=== PATIENT | female | born 1990 | race American Indian/Alaskan Native ===

== ENCOUNTER 2017-10-10 11:00 | Outpatient (CLI) | payer MEDICARE | END 2017-10-10 11:01 | disposition home or self-care (01) | LOC: SLR 11:00 | PROVIDERS: ATTEND Otolaryngology | DX: G47.33 Obstructive sleep apnea (adult) (pediatric) (principal) | CPT/HCPCS: 95810 ==

== ENCOUNTER 2017-11-02 11:00 | Outpatient (CLI) | payer MEDICARE | END 2017-11-02 11:01 | disposition home or self-care (01) | LOC: SLR 11:00 | PROVIDERS: ATTEND Otolaryngology | DX: G47.33 Obstructive sleep apnea (adult) (pediatric) (principal) | CPT/HCPCS: 95811 ==

== ENCOUNTER 2018-11-14 06:43 | Day surgery (SDC) | payer MEDICARE ==
[2018-11-14] MEDS ORDERED: NACL 0.9% 1000 ML 1,000 ML IV SCH (07:00)
--- NOTE | 2018-11-14 08:51 | Anesthesia Consultation ---
Anesthesia Consult and Med Hx Date of service: 11/14/18 - Airway Anesthetic Teeth Evaluation: Good ROM Head & Neck: Adequate Mental/Hyoid Distance: Adequate Mallampati Class: Class II Intubation Access Assessment: Possibly Difficult - Pulmonary Exam CTA: Yes - Cardiac Exam Cardiac Exam: RRR - Pre-Operative Health Status ASA Pre-Surgery Classification: ASA3 Proposed Anesthetic Plan: MAC - Pulmonary Hx Smoking: No Hx Sleep Apnea: Yes (compliant with CPAP) - Cardiovascular System Hx Hypertension: No Hx Heart Attack/AMI: No Hx Cardia Arrhythmia: No - Central Nervous System CVA: No - Gastrointestinal Hx Gastroesophageal Reflux Disease: No - Endocrine Hx Renal Disease: No Hx Liver Disease: No Hx Insulin Dependent Diabetes: No Hx Non-Insulin Dependent Diabetes: No Hx Thyroid Disease: No - Hematic Hx Anemia: Yes - Other Systems Hx Obesity: Yes (BMI 77) - Additional Comments Anesthesia Medical History Comments: No prior GA. No FHx anesthetic complications.
--- NOTE | 2018-11-14 08:52 | Anesthesia Day of Surgery ---
Anesthesia Day of Surgery - Day of Surgery Patient Examined: Yes Patient H&P Reviewed: Yes Patient is NPO: Yes
[2018-11-14] MEDS ORDERED: DIPRIVAN 10 MG/ML IV ONE (10:57)
[2018-11-14] MEDS ORDERED: WATER FOR IRRIG STERILE IR ONE (11:43)
[2018-11-14] MEDS ORDERED: WATER FOR IRRIG STERILE ONE (11:43)
[2018-11-14] MEDS ORDERED: VERSED ONE (11:43)
--- NOTE | 2018-11-14 12:27 | Operative Report ---
SURGEON: Omid Collins M.D. MATERIAL HANDLER 1ST SHIFT: Odell Mathews M.D. PREOPERATIVE DIAGNOSIS: Morbid obesity. POSTOPERATIVE DIAGNOSES: Retained food products. PROCEDURE: Attempted endoscopy. ANESTHESIA: MAC. COMPLICATIONS: Retained food products obscuring view, inability to complete EGD. SPECIMENS: None. BLEEDING: None. INDICATIONS: The patient is a 28-year-old female with a history of morbid obesity. She is here for a preoperative EGD in preparation for weight loss surgery. Informed consent was obtained. DESCRIPTION OF PROCEDURE: The patient was brought to the GI suite where she was placed in the left lateral decubitus position and underwent MAC anesthesia. A bite block was placed and a timeout was called. A standard adult gastroscope was inserted into the oropharynx, down the esophagus, into the proximal portion of the stomach. Upon entry, there was visualization of solid food products obscuring view. I attempted to pass this, but there was too much foreign body material. The food products were too thick for suctioning and therefore the procedure was aborted. The air was suctioned and scope was removed. The patient tolerated the procedure well with no immediate complications and was transferred to the PACU in stable condition. FINDINGS: Significant retained food products, inability to complete EGD. The patient will have to be strict n.p.o. after midnight in preparation for operation as well as adherent to the clear liquid diet for 2 days prior to surgery. We will need to do a preoperative EGD before her operation. JOB# [id number] [facility]
[2018-11-14 12:33] VITALS: BP 132/76
== END 2018-11-14 06:44 | disposition home or self-care (01) ==
LOC: GIO 06:43
PROVIDERS: ATTEND Specialist
DX: K30 Functional dyspepsia (principal); E66.01 Morbid (severe) obesity due to excess calories; G47.30 Sleep apnea, unspecified; K21.9 Gastro-esophageal reflux disease without esophagitis; Z98.890 Other specified postprocedural states; Z98.84 Bariatric surgery status; Z79.899 Other long term (current) drug therapy; Z68.45 Body mass index [BMI] 70 or greater, adult; Z86.2 Personal history of diseases of the blood and blood-forming organs and certain disorders involving the immune mechanism
CPT/HCPCS: 43235; 81025; J2250; J2704; J7030

== ENCOUNTER 2018-11-28 06:17 | Day surgery (SDC) | payer MEDICARE ==
[2018-11-28] MEDS ORDERED: NACL 0.9% 1000 ML 1,000 ML IV SCH (07:00)
[2018-11-28] MEDS ORDERED: WATER FOR IRRIG STERILE IR ONE (07:26)
[2018-11-28] MEDS ORDERED: WATER FOR IRRIG STERILE ONE (07:26)
[2018-11-28] MEDS ORDERED: XYLOCAINE 2% INFILTRATI ONE (07:30)
[2018-11-28] MEDS ORDERED: DIPRIVAN 10 MG/ML IV ONE (07:30)
[2018-11-28] MEDS ORDERED: VERSED ONE (07:34)
[2018-11-28] MEDS ORDERED: ROBINUL ONE ×2 (07:44→14:46)
[2018-11-28] MEDS ORDERED: NACL 0.9% 100 ML ONE (07:45)
[2018-11-28] MEDS ORDERED: NEO SYNEPHRINE ONE (07:45)
[2018-11-28] MEDS ORDERED: KETALAR ONE (07:46)
--- NOTE | 2018-11-28 07:53 | Anesthesia Day of Surgery ---
Anesthesia Day of Surgery - Day of Surgery Patient Examined: Yes Patient H&P Reviewed: Yes Patient is NPO: Yes Beta Blockers: No
--- NOTE | 2018-11-28 07:54 | Anesthesia Consultation ---
Anesthesia Consult and Med Hx Date of service: 11/28/18 - Airway Anesthetic Teeth Evaluation: Good ROM Head & Neck: Adequate Mental/Hyoid Distance: Adequate Mallampati Class: Class II Intubation Access Assessment: Probably Good - Pulmonary Exam CTA: Yes - Cardiac Exam Cardiac Exam: No Murmur - Pre-Operative Health Status ASA Pre-Surgery Classification: ASA2 Proposed Anesthetic Plan: MAC - Pulmonary Hx Smoking: No Hx Pneumonia: Yes (HX) Hx Sleep Apnea: Yes - Cardiovascular System Hx Hypertension: No Hx Heart Attack/AMI: No Hx Cardia Arrhythmia: No - Central Nervous System CVA: No - Gastrointestinal Hx Gastroesophageal Reflux Disease: No - Endocrine Hx Renal Disease: No Hx Liver Disease: No Hx Insulin Dependent Diabetes: No Hx Non-Insulin Dependent Diabetes: No Hx Thyroid Disease: No - Hematic Hx Anemia: Yes - Other Systems Hx Obesity: Yes (BMI 77)
[2018-11-28 08:36] VITALS: BP 139/82
[2018-11-28] MEDS ORDERED: NACL 0.9% 1000 ML 1,000 ML ONE (09:50)
--- NOTE | 2018-11-28 10:41 | Operative Report ---
SURGEON: Omid Collins MD [employer] CLAIM EXAMINER: Odell Mathews MD PREOPERATIVE DIAGNOSIS: Morbid obesity. POSTOPERATIVE DIAGNOSIS: Moderate hiatal hernia, 3 cm. PROCEDURE: Esophagogastroduodenoscopy. ANESTHESIA: MAC. COMPLICATIONS: None. SPECIMENS: None. BLEEDING: None. INDICATIONS: The patient is a 28-year-old female with a history of morbid obesity. She is here for a preoperative EGD. She had a prior preoperative EGD that was incomplete due to retained food products. Therefore, she is here today for repeat endoscopy. Informed consent had been obtained. DESCRIPTION OF PROCEDURE: The patient was brought to the GI suite where she was placed in the left lateral decubitus position and underwent MAC anesthesia. A bite block was placed and a timeout was called. A standard adult gastroscope was inserted into the oropharynx, down the esophagus, into the stomach. Upon entry, there were no food products. There were no abnormalities. The pylorus was intubated to the level of D1. On retroflexion view in the stomach, she had a moderate sized hiatal hernia measuring approximately 3 cm. No other lesions or abnormalities. The air was desufflated. The gastroscope was removed. The patient tolerated the procedure well with no immediate complications and was transferred to the PACU in stable condition. [facility]# [id number] [facility]
== END 2018-11-28 08:40 | disposition home or self-care (01) ==
LOC: GIO 06:17
PROVIDERS: ATTEND Specialist
DX: K30 Functional dyspepsia (principal); E66.01 Morbid (severe) obesity due to excess calories; K44.9 Diaphragmatic hernia without obstruction or gangrene; K21.9 Gastro-esophageal reflux disease without esophagitis; G47.30 Sleep apnea, unspecified; Z79.899 Other long term (current) drug therapy; Z68.45 Body mass index [BMI] 70 or greater, adult; Z98.890 Other specified postprocedural states; Z86.2 Personal history of diseases of the blood and blood-forming organs and certain disorders involving the immune mechanism
CPT/HCPCS: 43235; 81025; J2250; J2370; J2704; J7030